=== PATIENT | female | born 1980 | race African-American/Black ===

== ENCOUNTER 2019-05-24 23:37 | Emergency (ER) | payer OTHER ==
[~2019-05-24] VITALS: Ht 165.1 cm; Wt 106.1 kg
[2019-05-24 23:55] VITALS: BP 138/90
[2019-05-25] MEDS ORDERED: ACETAMINOPHEN/CODEINE#3 (300/30mg) TAB PO ONE (02:30)
[2019-05-25] MEDS ORDERED: DexAMETHasone SOD PHOS 10MG/1ML VIAL INJ IM ONE (02:30)
[2019-05-25] MEDS ORDERED: BACLOFEN 10 MG TAB PO ONE (02:30)
[2019-05-25] MEDS ORDERED: HYDROcodone-ACET 5/325MG TAB PO ONE (02:45)
== END 2019-05-25 02:42 | disposition home or self-care (01) ==
LOC: ER 23:50
DX: R51 Headache (principal); W20.8XXA Other cause of strike by thrown, projected or falling object, initial encounter; Y93.89 Activity, other specified; Y92.89 Other specified places as the place of occurrence of the external cause; Y99.8 Other external cause status
CPT/HCPCS: 70450; 96372; 99284; J1100

== ENCOUNTER 2021-07-17 10:37 | Inpatient (IN) | payer OTHER, MEDICAID ==
[~2021-07-17] VITALS: Ht 172.7 cm; Wt 110.4 kg
[2021-07-17] MEDS ORDERED: ALBUTEROL SULF 2.5 MG/0.5ML(0.5%) NEB SOLN NEB ONE (10:45)
[2021-07-17] MEDS ORDERED: methylPREDNISolone SOD SUCC 125 MG/2 ML VL IV ONE (10:45)
[2021-07-17] MEDS ORDERED: IPRATROPIUM BROM 0.5 MG/2.5ML INH SOL NEB ONE (10:45)
[2021-07-17 11:17] LABS: Basophils # (auto) 0 10 ^3/uL (0-0.2); Eosinophils # (auto) 0 10 ^3/uL (0-0.8); Monocytes # (auto) 0.7 10 ^3/uL (0-1.3); Neutrophils # (auto) 3.3 10 ^3/uL (1.6-8.6); Red Cell Distribution Width 16.9 % (11.8-14.3); White Blood Cell 5.5 10^3/uL (4.4-10.8)
[2021-07-17 11:19] LABS: Basophils % (auto) 0.2 % (0.0-2.0); Hematocrit 31.1 % (36.0-46.0); Hemoglobin 10.2 g/dL (12.2-16.2); Lymphocytes # (auto) 1.5 10 ^3/uL (0.4-5.4); Lymphocytes % (auto) 26.9 % (10.0-50.0); Mean Corpuscular Hemoglobin 23.4 pg (28.0-32.0); Mean Corpuscular Hgb Conc. 32.9 g/dL (32.0-36.0); Mean Corpuscular Volume 71.2 fL (80.0-100.0); Monocytes % (auto) 12.1 % (0.0-12.0); Neutrophils % (auto) 60.8 % (37.0-80.0); Nucleated Red Blood Cells % 0.1 %; Red Blood Cells 4.36 10^6/uL (4.0-5.20)
[2021-07-17 11:41] LABS: Albumin 3.1 g/dL (3.4-5.0); Anion Gap 9 (5-15); Blood Urea Nitrogen 8 mg/dL (7-18); Calcium 7.7 mg/dL (8.5-10.1); Carbon Dioxide 21 mmol/L (21-32); Chloride 102 mmol/L (98-107); Glucose 104 mg/dL (74-106); Potassium 3.3 mmol/L (3.5-5.1); Sodium 132 mmol/L (136-145)
[2021-07-17 11:49] LABS: Alanine Aminotransferase 26 U/L (13-56); Alkaline Phosphatase 60 U/L (45-117); Aspartate Aminotransferase 35 U/L (15-37); BUN/Creatinine Ratio 8.9; Bilirubin, Total 0.3 mg/dL (0.2-1.0); CRP High Sensitivity 2.27 mg/dL (< 0.3); GFR African American 88 mL/min; GFR Non-African American 73 mL/min; Total Protein 7.8 g/dL (6.4-8.2)
[2021-07-17] MEDS ORDERED: AZITHROMYCIN 500MG/ 250ML 250 ML IV ONE (17:45)
[2021-07-17] MEDS ORDERED: cefTRIAXone 1GM/50ML D5W 50 ML IV ONE (17:45)
[2021-07-17] MEDS ORDERED: REMDESIVIR PER PHARMACY 0 ML IV SCH (18:45)
[2021-07-17 19:08] LABS: Urine Bacteria FEW /hpf (None Seen); Urine Blood Negative /uL (Negative); Urine Specific Gravity 1.006 (1.001-1.035); Urine WBC 1 /hpf (0 - 5)
[2021-07-17] MEDS ORDERED: REMDESIVIR 200 MG in NS 210ml LOADING DOSE ADULT IV ONE (20:00)
[2021-07-17] MEDS ORDERED: ALBUTEROL SULF HFA 90MCG INH 200DOSE IN PRN (20:15)
[2021-07-17] MEDS: DexAMETHasone SOD PHOS 10MG/1ML VIAL INJ IV SCH (20:16)
[2021-07-17] MEDS: ZINC SULFATE 220mg CAP or TAB PO SCH (20:16)
[2021-07-17] MEDS: ASCORBIC ACID 500 MG TAB PO SCH (20:16)
[2021-07-17] MEDS: CHOLECALCIFEROL (VITD3) 1,000UNIT=25mCg TAB PO SCH (20:16)
[2021-07-17] MEDS: ENOXAPARIN SOD 40 MG/0.4 ML SYRINGE SC SCH (20:17)
[2021-07-17 21:41] VITALS: BP 129/79
[2021-07-17] MEDS: ALBUTEROL SULF HFA 90MCG INH 200DOSE IN PRN (22:26)
[2021-07-17 22:54] VITALS: BP 134/80
[2021-07-17] MEDS ORDERED: ALBUAER3 IN (23:30)
[2021-07-18] MEDS: PROMETHAZINE W/CODEINE 5 ML ORAL SYRUP PO PRN ×3 (02:21→20:51)
[2021-07-18 05:00] VITALS: BP 108/76
[2021-07-18] MEDS: ALBUTEROL SULF HFA 90MCG INH 200DOSE IN PRN (07:11)
[2021-07-18 07:25] LABS: Albumin 2.8 g/dL (3.4-5.0); BUN/Creatinine Ratio 11.3; Bilirubin, Total 0.2 mg/dL (0.2-1.0); Total Protein 7.4 g/dL (6.4-8.2)
[2021-07-18 08:00] VITALS: BP 109/56
[2021-07-18 09:00] VITALS: BP 109/56
[2021-07-18] MEDS ORDERED: cefTRIAXone 1GM/50ML D5W 50 ML IV SCH (09:00)
[2021-07-18] MEDS ORDERED: AZITHROMYCIN 500MG/ 250ML 250 ML IV SCH (10:00)
[2021-07-18] MEDS: ZINC SULFATE 220mg CAP or TAB PO SCH (10:29)
[2021-07-18] MEDS: ASCORBIC ACID 500 MG TAB PO SCH (10:29)
[2021-07-18] MEDS: DexAMETHasone SOD PHOS 10MG/1ML VIAL INJ IV SCH (10:29)
[2021-07-18] MEDS: CHOLECALCIFEROL (VITD3) 1,000UNIT=25mCg TAB PO SCH (10:30)
[2021-07-18] MEDS: ENOXAPARIN SOD 40 MG/0.4 ML SYRINGE SC SCH (11:21)
[2021-07-18 13:00] VITALS: BP 112/66
[2021-07-18] MEDS: REMDESIVIR 100mg 100 MG in SODIUM CHL 0.9% 230 ML IV SCH (15:27)
[2021-07-18 17:00] VITALS: BP 114/67
[2021-07-18 22:00] VITALS: BP 129/68
[2021-07-19] MEDS: ALBUTEROL SULF HFA 90MCG INH 200DOSE IN PRN ×2 (01:32→12:50)
[2021-07-19] MEDS: PROMETHAZINE W/CODEINE 5 ML ORAL SYRUP PO PRN ×3 (03:30→22:33)
[2021-07-19 05:00] VITALS: BP 113/68
[2021-07-19 07:39] LABS: Albumin 2.4 g/dL (3.4-5.0); BUN/Creatinine Ratio 15.1; Calcium 7.7 mg/dL (8.5-10.1); Potassium 3.6 mmol/L (3.5-5.1)
[2021-07-19 07:41] LABS: Bilirubin, Total 0.3 mg/dL (0.2-1.0); Total Protein 6.8 g/dL (6.4-8.2)
[2021-07-19 09:00] VITALS: BP 102/54
[2021-07-19] MEDS: DexAMETHasone SOD PHOS 10MG/1ML VIAL INJ IV SCH (11:15)
[2021-07-19] MEDS: ASCORBIC ACID 500 MG TAB PO SCH (11:16)
[2021-07-19] MEDS: CHOLECALCIFEROL (VITD3) 1,000UNIT=25mCg TAB PO SCH (11:16)
[2021-07-19] MEDS: ENOXAPARIN SOD 40 MG/0.4 ML SYRINGE SC SCH (11:16)
[2021-07-19] MEDS: ZINC SULFATE 220mg CAP or TAB PO SCH (11:16)
[2021-07-19] MEDS ORDERED: IOHEXOL 300 MG/ML 100ML BOTTLE IJ ONE (11:40)
[2021-07-19] MEDS: HYDROmorphone HCL 2 MG/ML VL IV PRN ×2 (11:51→16:42)
[2021-07-19 13:00] VITALS: BP 118/59
[2021-07-19] MEDS: REMDESIVIR 100mg 100 MG in SODIUM CHL 0.9% 230 ML IV SCH (15:09)
[2021-07-19 17:00] VITALS: BP 123/78
[2021-07-19 22:00] VITALS: BP 103/59
[2021-07-19] MEDS ORDERED: ENOXAPARIN SOD 40 MG/0.4 ML SYRINGE SC SCH (22:00)
[2021-07-20 05:00] VITALS: BP 99/59
[2021-07-20] MEDS: PROMETHAZINE W/CODEINE 5 ML ORAL SYRUP PO PRN ×2 (06:11→18:23)
[2021-07-20 06:54] LABS: Basophils # (auto) 0 10 ^3/uL (0-0.2); Eosinophils # (auto) 0 10 ^3/uL (0-0.8); Hemoglobin 10.7 g/dL (12.2-16.2); Monocytes # (auto) 1.9 10 ^3/uL (0-1.3)
[2021-07-20 06:56] LABS: Basophils % (auto) 0.2 % (0.0-2.0); Hematocrit 33.9 % (36.0-46.0); Lymphocytes % (auto) 19.9 % (10.0-50.0); Mean Corpuscular Hemoglobin 22.6 pg (28.0-32.0); Mean Corpuscular Hgb Conc. 31.5 g/dL (32.0-36.0); Mean Corpuscular Volume 71.9 fL (80.0-100.0); Monocytes % (auto) 18.8 % (0.0-12.0); Neutrophils # (auto) 6.2 10 ^3/uL (1.6-8.6); Neutrophils % (auto) 61.1 % (37.0-80.0); Nucleated Red Blood Cells % 0.1 %; Red Blood Cells 4.71 10^6/uL (4.0-5.20); Red Cell Distribution Width 17.2 % (11.8-14.3); White Blood Cell 10.2 10^3/uL (4.4-10.8)
[2021-07-20] MEDS: ALBUTEROL SULF HFA 90MCG INH 200DOSE IN PRN ×2 (07:09→23:25)
[2021-07-20 07:15] LABS: Potassium 3.7 mmol/L (3.5-5.1)
[2021-07-20 07:19] LABS: BUN/Creatinine Ratio 13.3
[2021-07-20 07:20] LABS: Albumin 2.4 g/dL (3.4-5.0); Calcium 7.9 mg/dL (8.5-10.1)
[2021-07-20 07:23] LABS: Bilirubin, Total 0.3 mg/dL (0.2-1.0)
[2021-07-20 09:00] VITALS: BP 138/65
[2021-07-20] MEDS: ASCORBIC ACID 500 MG TAB PO SCH (09:56)
[2021-07-20] MEDS: CHOLECALCIFEROL (VITD3) 1,000UNIT=25mCg TAB PO SCH (09:56)
[2021-07-20] MEDS: DexAMETHasone SOD PHOS 10MG/1ML VIAL INJ IV SCH (09:56)
[2021-07-20] MEDS: ZINC SULFATE 220mg CAP or TAB PO SCH (09:56)
[2021-07-20 13:00] VITALS: BP 136/67
[2021-07-20] MEDS ORDERED: guaiFENesin-DM 100/10mg/5ml SYR PO PRN (13:00)
[2021-07-20] MEDS: REMDESIVIR 100mg 100 MG in SODIUM CHL 0.9% 230 ML IV SCH (15:27)
[2021-07-20 17:00] VITALS: BP 118/68
[2021-07-20 22:00] VITALS: BP 97/64
[2021-07-21] MEDS: PROMETHAZINE W/CODEINE 5 ML ORAL SYRUP PO PRN ×2 (00:06→06:05)
[2021-07-21 05:00] VITALS: BP 97/57
[2021-07-21 07:09] LABS: Hemoglobin 10.2 g/dL (12.2-16.2); Mean Corpuscular Hemoglobin 23.4 pg (28.0-32.0); Mean Corpuscular Hgb Conc. 32.8 g/dL (32.0-36.0); Mean Corpuscular Volume 71.4 fL (80.0-100.0); Red Blood Cells 4.35 10^6/uL (4.0-5.20); Red Cell Distribution Width 16.7 % (11.8-14.3); White Blood Cell 9.8 10^3/uL (4.4-10.8)
[2021-07-21 07:12] LABS: Potassium 3.6 mmol/L (3.5-5.1)
[2021-07-21 07:13] LABS: Band Neutrophils % (manual) 0; Basophils % (manual) 0 (0.0-2.0); Blast Cells 0; Metamyelocytes % 0; Myelocytes % 0; Promyelocytes % 0; Reactive Lymphocytes 0
[2021-07-21 07:27] LABS: Albumin 2.4 g/dL (3.4-5.0); BUN/Creatinine Ratio 14.3; Bilirubin, Total 0.4 mg/dL (0.2-1.0); CRP High Sensitivity 7.11 mg/dL (< 0.3); Calcium 7.7 mg/dL (8.5-10.1); Total Protein 6.6 g/dL (6.4-8.2)
[2021-07-21 08:37] LABS: Eosinophils % (manual) 1 (0-7); Lymphocytes % (manual) 14 (10.0-50.0); Monocytes % (manual) 11 (0-12)
[2021-07-21] MEDS: ZINC SULFATE 220mg CAP or TAB PO SCH (08:46)
[2021-07-21] MEDS: CHOLECALCIFEROL (VITD3) 1,000UNIT=25mCg TAB PO SCH (08:46)
[2021-07-21] MEDS: ASCORBIC ACID 500 MG TAB PO SCH (08:46)
[2021-07-21] MEDS: DexAMETHasone SOD PHOS 10MG/1ML VIAL INJ IV SCH (08:46)
[2021-07-21 09:00] VITALS: BP 105/66
[2021-07-21] MEDS: ALBUTEROL SULF HFA 90MCG INH 200DOSE IN PRN (09:36)
[2021-07-21] MEDS ORDERED: AZITHROMYCIN 250 MG TAB PO SCH (10:00)
[2021-07-21 13:00] VITALS: BP 110/63
[2021-07-21] MEDS: REMDESIVIR 100mg 100 MG in SODIUM CHL 0.9% 230 ML IV SCH (15:15)
[2021-07-21 17:00] VITALS: BP 122/76
[2021-07-21 22:22] VITALS: BP 110/87
[2021-07-21] MEDS: HYDROmorphone HCL 2 MG/ML VL IV PRN (22:23)
[2021-07-22 05:00] VITALS: BP 105/64
[2021-07-22] MEDS: PROMETHAZINE W/CODEINE 5 ML ORAL SYRUP PO PRN ×2 (06:25→19:45)
[2021-07-22] MEDS: ALBUTEROL SULF HFA 90MCG INH 200DOSE IN PRN (07:48)
[2021-07-22 09:00] VITALS: BP 114/65
[2021-07-22] MEDS ORDERED: ALBUAER3 IN (10:28)
[2021-07-22] MEDS: ASCORBIC ACID 500 MG TAB PO SCH (10:37)
[2021-07-22] MEDS: CHOLECALCIFEROL (VITD3) 1,000UNIT=25mCg TAB PO SCH (10:38)
[2021-07-22] MEDS: DexAMETHasone SOD PHOS 10MG/1ML VIAL INJ IV SCH (10:38)
[2021-07-22] MEDS: ZINC SULFATE 220mg CAP or TAB PO SCH (10:38)
[2021-07-22 11:18] LABS: Hematocrit 30.7 % (36.0-46.0); Mean Corpuscular Hemoglobin 23.6 pg (28.0-32.0); Mean Corpuscular Hgb Conc. 32.7 g/dL (32.0-36.0); Mean Corpuscular Volume 72.4 fL (80.0-100.0); Red Blood Cells 4.24 10^6/uL (4.0-5.20); Red Cell Distribution Width 16.7 % (11.8-14.3); White Blood Cell 10.1 10^3/uL (4.4-10.8)
[2021-07-22 11:31] LABS: Basophils % (manual) 0 (0.0-2.0); Blast Cells 0; Eosinophils % (manual) 0 (0-7); Metamyelocytes % 0; Myelocytes % 0; Promyelocytes % 0; Reactive Lymphocytes 0
[2021-07-22 11:33] LABS: Albumin 2.4 g/dL (3.4-5.0); Calcium 7.9 mg/dL (8.5-10.1); Potassium 3.8 mmol/L (3.5-5.1)
[2021-07-22 11:36] LABS: BUN/Creatinine Ratio 18.6; Bilirubin, Total 0.3 mg/dL (0.2-1.0); Total Protein 6.7 g/dL (6.4-8.2)
[2021-07-22 12:37] LABS: Band Neutrophils % (manual) 2; Lymphocytes % (manual) 6 (10.0-50.0); Monocytes % (manual) 15 (0-12)
[2021-07-22 17:00] VITALS: BP 99/64
[2021-07-22 22:00] VITALS: BP 103/60
[2021-07-23 05:00] VITALS: BP 125/76
[2021-07-23 08:50] VITALS: BP 117/72
[2021-07-23] MEDS: ASCORBIC ACID 500 MG TAB PO SCH (10:40)
[2021-07-23] MEDS: ZINC SULFATE 220mg CAP or TAB PO SCH (10:40)
[2021-07-23] MEDS: CHOLECALCIFEROL (VITD3) 1,000UNIT=25mCg TAB PO SCH (10:40)
[2021-07-23] MEDS: DexAMETHasone SOD PHOS 10MG/1ML VIAL INJ IV SCH (10:41)
[2021-07-23] MEDS ORDERED: CHOL1TAB30 PO (12:31)
[2021-07-23] MEDS ORDERED: ASCO500T11 PO (12:31)
[2021-07-23] MEDS ORDERED: DEX4T PO (12:31)
[2021-07-23] MEDS ORDERED: ZINC220C8 PO (12:33)
[2021-07-23] MEDS: ALBUTEROL SULF HFA 90MCG INH 200DOSE IN PRN (12:43)
[2021-07-23 13:00] VITALS: BP 121/78
[2021-07-23 14:40] VITALS: BP 121/78
[2021-07-23 17:00] VITALS: BP 125/78
== END 2021-07-23 18:35 | disposition home health service (06) | DRG 177 ==
LOC: EDBD 10:37 → ER 10:37 → OVERFLOW 18:37 → EAST 19:45
PROVIDERS: ADMIT Internal Medicine; ATTEND Internal Medicine
PROC: XW033E5 Introduction of Remdesivir Anti-infective into Peripheral Vein, Percutaneous Approach, New Technology Group 5 (ICD-10-PCS; principal; 2021-07-17)
DX: U07.1 COVID-19 (principal); J12.82 Pneumonia due to coronavirus disease 2019; J96.01 Acute respiratory failure with hypoxia; J98.11 Atelectasis; J45.901 Unspecified asthma with (acute) exacerbation; I10 Essential (primary) hypertension; D25.9 Leiomyoma of uterus, unspecified; R14.0 Abdominal distension (gaseous)
CPT/HCPCS: 36415; 71045; 74177; 80053; 81001; 82728; 83880; 84484; 84702; 85007; 85025; 85027; 85379; 86141; 87070; 87205; 87426; 93005; 94640; 96365; 96368; 96375; G0378; J0696; J1100

== ENCOUNTER 2025-07-14 10:44 | Emergency (ER) | payer OTHER ==
[~2025-07-14] VITALS: Ht 165.1 cm; Wt 123.2 kg
[~2025-07-14 10:44] MED LIST: ALBUAER3 IN; ASCO500T11 PO; CHOL1TAB30 PO; DEX4T PO; ZINC220C8 PO
--- NOTE | 2025-07-14 10:55 | ECG ---
[facility] Test Date: 2025-07-14 Test Time: 10:54:16 Pat Name: ROSIO VERAS Department: ED Room: Gender: F Staff Sonographer: keila : 1980 Requested By: MAIRA SUTTON Order Number: [id number] Reading MD: Measurements Intervals [place] Rate: 112 P: 76 MS: 146 QRS: 49 QRSD: 88 T: 31 QT: 321 QTc: 438 Interpretive Statements Sinus tachycardia Ventricular premature complex Aberrant complex Biatrial enlargement Low voltage, precordial leads Please click the below link to view image of tracing.
--- NOTE | 2025-07-14 11:57 | DVH ---
CHEST RADIOGRAPH Indication: dizzy Technique: Single frontal view of the chest was obtained COMPARISON: CHEST XRAY 1 VIEW on DOS: 07/20/21, CHEST PORTABLE on DOS: 07/17/21 FINDINGS: Lines and Tubes: None Lungs: Clear Pleura: No effusion. No pneumothorax. Cardiomediastinal contours: Unremarkable Bones: Unremarkable IMPRESSION: No acute disease.
[2025-07-14 11:58] LABS: Nucleated Red Blood Cells % 0.1 %
[2025-07-14 12:00] LABS: Hematocrit 45.9 % (36.0-46.0); Hemoglobin 14.9 g/dL (12.2-16.2); Mean Corpuscular Hemoglobin 24.2 pg (28.0-32.0); Mean Corpuscular Volume 74.6 fL (80.0-100.0)
[2025-07-14 12:01] LABS: Chloride 104 mmol/L (98-107); Potassium 3.8 mmol/L (3.5-5.1); Sodium 141 mmol/L (136-145)
[2025-07-14 12:02] LABS: Anion Gap 13 (5-15); Calcium 9.9 mg/dL (8.7-10.4); Carbon Dioxide 24 mmol/L (20-31)
[2025-07-14 12:07] LABS: Glucose 97 mg/dL (74-106)
--- NOTE | 2025-07-14 12:07 | ED.PDOC ---
History of Present Illness HPI Comments 45-year-old female with a history of asthma, hypertension and GERD brought in by family complaining of dizziness for the last 3 days, associated with frontal headache. Patient describes the dizziness as as if the room is spinning, worse with movement and positioning, associated with nausea. She denies any vision changes, focal weakness, vomiting, abdominal pain, chest pain or fever. Chief Complaint: Dizziness Time Seen by MD: 11:25 Reviewed Notes: Nurses Notes, Medications, Allergies Allergies: Coded Allergies: Tetanus Antitoxin (Verified Allergy, Unknown, 07/14/25) Home Meds Active Scripts Ibuprofen Micronized (Ibuprofen) 800 Mg Tab, 800 MG PO Q8HP PRN, #30 TAB Prov:MAIRA ORELLANA MD 07/14/25 Ondansetron Odt 4MG Tab (ZOFRAN PO) 4 Mg Tb, 4 MG PO TID, #30 TAB Prn nausea or vomiting ODT TAB-DISSOLVE IN MOUTH, THEN SWALLOW Prov:MAIRA ORELLANA MD 07/14/25 Meclizine HCl (Meclizine 25) 25 Mg Tab, 25 MG PO TID PRN, #30 TAB Prn dizziness Prov:MAIRA ORELLANA MD 07/14/25 Zinc Sulfate (Zinc Sulfate) 220 Mg Cap, 220 MG PO DAILY for 10 Days, #10 CAP Prov:PATRICIA ANDREWS MD 07/23/21 Dexamethasone (Decadron) 4 Mg Tb, 6 TAB PO DAILY for 5 Days, #5 TAB Prov:PATRICIA ANDREWS MD 07/23/21 Cholecalciferol (Gnp Vitamin D) 1,000 Unit Tab, 1000 UNIT PO DAILY, #30 TAB Prov:PATRICIA ANDREWS MD 07/23/21 Ascorbic Acid (VITAMIN C TABLET) 500 Mg Tb, 1000 MG PO DAILY, #30 TAB Prov:PATRICIA ANDREWS MD 07/23/21 Albuterol Sulfate (VENTOLIN MDI) 90 Mcg Ih, 180 MCG IN TID PRN, #30 INH Prov:PATRICIA ANDREWS MD 07/22/21 Reported Medications Albuterol Sulfate (VENTOLIN MDI) 90 Mcg Ih, 90 MCG IN PRN, INH 07/17/21 Information Source: Patient Mode of Arrival: Ambulatory Past Medical History PAST MEDICAL HISTORY: Asthma, HTN Past Medical History (Other): Acute hypoxic 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 Moist mucous membranes.) Neck: Full Range of Motion, Normal Inspection Respiratory: Lungs Clear, No Accessory Muscle Use, No Respiratory Distress, Normal Breath Sounds Cardiovascular: No Edema, No JVD, Regular Rate/Rhythm Breast Exam: Deferred Gastrointestinal: Non Tender, Soft Genitalia: Deferred Pelvic: Deferred Rectal: Deferred Extremities: Normal inspection, Normal range of motion, Non-tender, No pedal edema Neurologic: Alert (Oriented x4), Normal Affect, Normal Mood, Other (Ambulatory. No gross focal deficit. Head movement reproduces dizziness symptoms.) Cerebellar Function: NOT DONE Reflexes: NOT DONE Skin: Dry, Normal Color, Warm Lymphatic: NOT DONE Was a procedure done? Was a procedure done?: No EKG EKG : Comments Sinus tach, rate 112, normal intervals, normal axis, biatrial enlargement, possible old anteroseptal infarct, inferior and lateral ST depression Differential Dx Considerations may include: Positional vertigo, CVA, TIA, arrhythmia, UTI, viral syndrome, electrolyte imbalance, hypertensive encephalopathy, hypovolemia/orthostasis, among others X-Ray, Labs, Meds, VS Vital Signs Date Time Temp Pulse Resp B/P (MAP) Pulse Ox O2 Delivery O2 Flow Rate FiO2 07/14/25 18:56 98.2 64 16 152/77 (102) 98 98.2 07/14/25 15:40 97.5 92 16 120/79 (93) 96 97.5 07/14/25 13:31 107 18 100 Room Air 07/14/25 13:31 97.3 107 18 101/60 (74) 100 97.3 07/14/25 10:54 112 07/14/25 10:45 97.9 137 16 153/96 100 97.9 Lab Test 07/14/25 13:51 07/14/25 12:41 07/14/25 12:19 07/14/25 11:44 Range/Units D-Dimer, Quantitative 0.21 0.0-0.49 mg/L FEU Troponin I High Sensitivity < 3 L < 3 L </=34 ng/L Urine Color Yellow Yellow Urine Clarity Clear Clear Urine pH 5.5 5.0-9.0 Urine Specific [place] 1.026 1.001-1.035 Urine Protein 1+ H Negative Urine Ketones Negative Negative Urine Blood Negative Negative /uL Urine Nitrite Negative Negative Urine Bilirubin Negative Negative Urine Urobilinogen Normal Negative mg/dL Urine Leukocyte Esterase Negative Negative /uL Urine RBC 1 0 - 4 /hpf Urine Microscopic WBC 2 0-5 /HPF Urine Squamous Epithelial Cells Few <5 /hpf Urine Bacteria Few H None Seen /hpf Urine Hyaline Casts Mod 0 - 2 /lpf Urine Mucus Few None Seen Urine Glucose Normal Normal mg/dL White Blood Count 12.6 H 4.4-10.8 10^3/uL Red Blood Count 6.16 H 4.0-5.20 10^6/uL Hemoglobin 14.9 12.2-16.2 g/dL Hematocrit 45.9 36.0-46.0 % Mean Corpuscular Volume 74.6 L 80.0-100.0 fL Mean Corpuscular Hemoglobin 24.2 L 28.0-32.0 pg Mean Corpuscular Hemoglobin Concent 32.5 32.0-36.0 g/dL Red Cell Distribution Width 16.8 H 11.8-14.3 % Platelet Count 456 H 140-450 10^3/uL Mean Platelet Volume 8.8 6.9-10.8 fL Neutrophils (%) (Auto) 65.0 37.0-80.0 % Lymphocytes (%) (Auto) 25.5 10.0-50.0 % Monocytes (%) (Auto) 7.9 0.0-12.0 % Eosinophils (%) (Auto) 0.9 0.0-7.0 % Basophils (%) (Auto) 0.7 0.0-2.0 % Neutrophils # (Auto) 8.2 1.6-8.6 10 ^3/uL Lymphocytes # (Auto) 3.2 0.4-5.4 10 ^3/uL Monocytes # (Auto) 1.0 0-1.3 10 ^3/uL Eosinophils # (Auto) 0.1 0-0.8 10 ^3/uL Basophils # (Auto) 0.1 0-0.2 10 ^3/uL Nucleated Red Blood Cells 0.1 % Platelet Estimate Increased Hypochromasia (manual) Slight Anisocytosis (manual) Slight Microcytosis Slight Ovalocytes Few Sodium Level 141 136-145 mmol/L Potassium Level 3.8 3.5-5.1 mmol/L Chloride Level 104 98-107 mmol/L Carbon Dioxide Level 24 20-31 mmol/L Anion Gap 13 5-15 Blood Urea Nitrogen 16 9-23 mg/dL Creatinine 1.34 H 0.550-1.02 mg/dL Glomerular Filtration Rate Calc 49 >90 mL/min BUN/Creatinine Ratio 11.9 10.0-20.0 Serum Glucose 97 74-106 mg/dL Calcium Level 9.9 8.7-10.4 mg/dL B-Type Natriuretic Peptide 0.86 0-100 pg/mL Current Medications Medications (Trade) Dose Ordered Sig/Gurpreet Route Start Time Stop Time Status Last Admin Acetaminophen/ Hydrocodone Bitart (Blanchard 5/325MG Tab) 2 tab ONCE ONCE PO 07/14/25 11:30 07/14/25 11:32 DC 07/14/25 13:30 Meclizine HCl (Antivert Tablet) 50 mg ONCE ONCE PO 07/14/25 11:30 07/14/25 11:32 DC 07/14/25 13:30 Ondansetron HCl (Zofran Po) 4 mg ONCE ONCE PO 07/14/25 11:30 07/14/25 11:32 DC 07/14/25 13:30 PROCEDURE(s): HWOCT - HEAD WITHOUT CONTRAST REASON: dizziness, headache ORDER NUMBER(s): [id number], ACCESSION NUMBER(s): [id number] EXAM: CT HEAD WITHOUT CONTRAST INDICATION: dizziness, headache TECHNIQUE: CT of the head without intravenous contrast. Radiation Dose : 1. Head: CT Dose: CTDI volume is 61.76 mGy. Dose-length product is 1.71 mGy*cm The dose indicators for CT are the volume Computed Tomography (CT) Dose Index (CTDIvol) and the Dose Length Product (DLP), and are measured in units of mGy and mGy-cm, respectively. These indicators are not patient dose, but values generated from the CT scanner acquisition factors. The report includes radiation exposure data for exposures received during this examination. COMPARISON: None FINDINGS: There is no evidence of acute intracranial hemorrhage, extra-axial collection, mass effect, midline shift, herniation or hydrocephalus. The ventricles, sulci and cisterns are age appropriate. The rush-white differentiation is intact. Patchy periventricular and subcortical white matter hypoattenuation is nonspecific but may be related to small vessel ischemic disease. The visualized paranasal sinuses and mastoid air cells are clear. The surrounding soft tissues and osseous structures are unremarkable. IMPRESSION: 1. No acute intracranial abnormality. Partially empty sella. No sinusitis Radiation optimization: All CT scans at this facility use at least one of these dose optimization techniques: automated exposure control mA and/or kV adjustment per patient size (includes targeted exams where dose is matched to clinical indication) or iterative reconstruction. ENT: ROSIO VERAS ACCT: [id number] UNIT: [id number] : 1980 LOC: ER ROOM / BED: / AGE / SEX: 45 / F ADM STATUS: REG ER SERVICE 1126 ORDERING PHYSICIAN: MAIRA ORELLANA MD PROCEDURE(s): CXRP - CHEST PORTABLE REASON: dizzy ORDER NUMBER(s): [id number], ACCESSION NUMBER(s): [id number] CHEST RADIOGRAPH Indication: dizzy Technique: Single frontal view of the chest was obtained COMPARISON: CHEST XRAY 1 VIEW on DOS: 07/20/21, CHEST PORTABLE on DOS: 07/17/21 FINDINGS: Lines and Tubes: None Lungs: Clear Pleura: No effusion. No pneumothorax. Cardiomediastinal contours: Unremarkable Bones: Unremarkable IMPRESSION: No acute disease. ATED BY: JACK ADAIR MD DICTATED DATE/TIME: 07/14/25 115 SIGNED BY: JACK ADAIR MD SIGNED DATE/TIME: 07/14/251154 CC: X-Ray, Labs, Meds, VS Comment 45-year-old female with a history of asthma, hypertension and GERD brought in by family complaining of dizziness for the last 3 days, associated with frontal headache. Vitals remarkable for heart rate 137, BP 153/96 Exam remarkable for reproducible dizziness with head movement Rhythm strip independently interpreted by me: Sinus tach, rate 112, no ectopy. CT head IMPRESSION: 1. No acute intracranial abnormality. Partially empty sella. No sinusitis Chest x-ray IMPRESSION: No acute disease. CBC remarkable for WBC 12.6, platelets 456, basic metabolic panel remarkable for creatinine 1.34, BNP and troponin negative, D-dimer Patient treated with the following in the ED: Blanchard 5/325 mg 2 tabs p.o., meclizine 50 mg p.o., Zofran ODT 4 mg p.o. On re-evaluation, was ambulatory without difficulty. Headache had improved. Rate was 92 and vitals were stable. Dizziness had improved. Hospitalization was considered, however patient had rapid improvement of symptoms with treatment in the ED, and I no longer feel hospitalization is necessary. Patient now appears stable for discharge with close outpatient follow-up with her primary doctor. Rx meclizine, Zofran, ibuprofen Time of 1ST Reevaluation: 11:55 Reevaluation 1ST: Unchanged Patient Education/Counseling: Diagnosis, Treatment, Need For Follow Up Family Education/Counseling: No Family Present SEPSIS Sepsis Screen Date sepsis recognized/suspect: Jul 14, 2025 Time Sepsis recognized/suspect: 1048 Recent Procedure: No On Antibiotic Therapy: No Respiratory Rate >20: No Heart Rate >90: Yes Temp<36 C (96.8 F) or >38.3 C: No SBP <90 or MAP <65 mmHG: No New Acute Mental Status Change: No Is the patient on CPAP, BIPAP,: No SEPSIS EXCLUSION NOTE: Sepsis Exclusion Note: Patient presents with SIRS criteria, but the SIRS response is attributed to [discomfort from headache, dizziness], not a suspected infection. Sepsis bundle is not initiated at this time, due to this reason. Further management will focus on the treatment of the above condition (s). Physician Orders Chest Portable (07/14/25 11:26) Head Without Contrast (07/14/25 11:26) Vital Signs Date Time Temp Pulse Resp B/P (MAP) Pulse Ox O2 Delivery O2 Flow Rate FiO2 07/14/25 18:56 98.2 64 16 152/77 (102) 98 98.2 07/14/25 15:40 97.5 92 16 120/79 (93) 96 97.5 07/14/25 13:31 107 18 100 Room Air 07/14/25 13:31 97.3 107 18 101/60 (74) 100 97.3 07/14/25 10:54 112 07/14/25 10:45 97.9 137 16 153/96 100 97.9 Laboratory Tests Test 07/14/25 11:44 White Blood Count 12.6 10^3/uL (4.4-10.8) H Medications Medications Dose Ordered Sig/Gurpreet Route Start Time Stop Time Status Last Admin Dose Admin Acetaminophen/ Hydrocodone Bitart 2 tab ONCE ONCE PO 07/14/25 11:30 07/14/25 11:32 DC 07/14/25 13:30 Meclizine HCl 50 mg ONCE ONCE PO 07/14/25 11:30 07/14/25 11:32 DC 07/14/25 13:30 Ondansetron HCl 4 mg ONCE ONCE PO 07/14/25 11:30 07/14/25 11:32 DC 07/14/25 13:30 Departure 1 Departure Time of Disposition: 13:00 Impression: Primary Impression: Vertigo Additional Impression: Cephalgia Disposition: HOME / SELF CARE / HOMELESS Condition: Stable Additional Instructions: Your blood and urine tests were unremarkable. Your head CT was unremarkable. I have prescribed medication to treat your symptoms. Follow-up with your primary doctor in 1-2 days. Return to ER for persistent or worsening symptoms. e-Prescriptions Ibuprofen Micronized (Ibuprofen) 800 Mg Tab 800 MG PO Q8HP PRN, #30 TAB Prov: MAIRA ORELLANA MD 07/14/25 Ondansetron Odt 4MG Tab (ZOFRAN PO) 4 Mg Tb 4 MG PO TID, #30 TAB Prn nausea or vomiting ODT TAB-DISSOLVE IN MOUTH, THEN SWALLOW Prov: MAIRA ORELLANA MD 07/14/25 Meclizine HCl (Meclizine 25) 25 Mg Tab 25 MG PO TID PRN, #30 TAB Prn dizziness Prov: MAIRA ORELLANA MD 07/14/25 Discharged With: Relative Critical Care Note Critical Care Time?: No Stability Stability form required: No Heart Score Heart Score: Heart Score Response (Comments) Value History N/A 0 EKG N/A 0 Age N/A 0 Risk Factors N/A 0 Troponin N/A 0 Total 0 I personally scribed for MAIRA ORELLANA MD ([email or web address] on 07/14/25 at 12:07. Electronically submitted by Shon Dave ([email or web address]). I personally scribed for MAIRA ORELLANA MD ([email or web address]) on 07/14/25 at 12:32. Electronically submitted by Shon Dave ([email or web address]). MAIRA ORELLANA MD Jul 14, 2025 12:07
[2025-07-14 12:31] LABS: Anisocytosis Slight
[2025-07-14 12:32] LABS: Ovalocytes FEW
[2025-07-14 13:08] LABS: BUN/Creatinine Ratio 11.9 (10.0-20.0); Blood Urea Nitrogen 16 mg/dL (9-23)
[2025-07-14 13:24] LABS: Urine Protein, UAD 1+ (Negative)
[2025-07-14] MEDS: HYDROcodone-ACET 5/325MG TAB PO ONE (13:30)
[2025-07-14] MEDS: MECLIZINE HCL 25 MG TAB PO ONE (13:30)
[2025-07-14] MEDS: ONDANSETRON ODT 4 MG TAB PO ONE (13:30)
[2025-07-14] MEDS ORDERED: ZOFR4T PO (17:41)
[2025-07-14] MEDS ORDERED: MECL1TAB42 PO (17:41)
[2025-07-14] MEDS ORDERED: IBUP-1455 PO (17:43)
[2025-07-14 18:56] VITALS: BP 152/77; PULSE 64; RESP 16; TEMP 98.2; O2SAT 98
== END 2025-07-14 18:55 | disposition home or self-care (01) ==
LOC: ER 10:44
DX: R42 Dizziness and giddiness (principal); R51.9 Headache, unspecified; I10 Essential (primary) hypertension; J45.909 Unspecified asthma, uncomplicated; Z79.899 Other long term (current) drug therapy; Z98.890 Other specified postprocedural states
CPT/HCPCS: 36415; 70450; 71045; 80048; 81001; 83880; 84484; 85025; 85379; 93005; 99285; J8597; Q0162